=== PATIENT | female | born 1975 | race Caucasian/White ===

== ENCOUNTER 2017-03-11 08:43 | Observation (INO) | payer OTHER ==
[~2017-03-11] VITALS: Ht 152.4 cm; Wt 76.7 kg
[~2017-03-11 08:43] MED LIST: LEVO.15 PO; ZYRT10TA3 PO
[2017-03-11 08:56] VITALS: BP 167/93; PULSE 83; RESP 16; TEMP 98.2; O2SAT 99
--- NOTE | 2017-03-11 08:59 | PD ---
HPI Chief Complaint: Chest Pain Time Seen by Provider: 08:55 Travel History International Travel<30 days: No Contact w/Intl Traveler<30days: No Traveled to known affect area: No History of Present Illness HPI PATIENT HAS HAD CP SINCE LAST NIGHT FAIRLY STEADY ALL NIGHT THEN FINALLY LET UP , NOW HAD A SECOND EPISODE THAT STARTED ABOUT 40MIN AGO, DESCRIBED SUBSTERNAL , NON RAD, PRESSURE TO PINS AND NEEDLE SENSATION SUBSTERNALLY, CURRENTLY 5/10, DENIES N/V/FEVER/COUGH/ PFSH Past Medical History Hx Anticoagulant Therapy: No Anemia: Yes Arthritis: Yes (?RA) Cancer: No Cardiovascular Problems: Yes (CHOL) Diabetes: No Diminished Hearing: No Hepatitis: No Hiatal Hernia: No Hypertension: No Immune Disorder: Yes (?RA) Musculoskeletal: Yes (TENDONITIS RIGHT ELBOW) Reproductive: Yes ("ADENOMYOSIS") Respiratory: Yes (DYSPNEA) Immunizations Current: Yes Migraines: Yes Thyroid Disease: Yes (HYPO) : 0 Past Surgical History Hysterectomy: Yes (partial-UTERUS REMOVED/CERVIX AND OVARIES IN PLACE) Oral Surgery: Yes (T&A ; WISDOM TEETH) Pacemaker: No Tonsillectomy: Yes Other Surgery: Yes Social History Alcohol Use: No Tobacco Use: No Substance Use: No Allergies-Medications (Allergen,Severity, Reaction): Coded Allergies: Bactrim (Verified Allergy, Severe, 03/11/17) Ibuprofen (Unverified Allergy, Severe, PT STATES SHE "PASSES OUT", 03/11/17 ) Motrin (Verified Allergy, Severe, PASSES OUT, 03/11/17) Uncoded Allergies: BLOOD PRODUCTS (Adverse Reaction, Unknown, GNOSTICIST, 02/09/16) PT IS A GNOSTICIST NO BLOOD TRANSFUSIONS/BLOOD PRODUCTS Reported Meds & Prescriptions Reported Meds & Active Scripts Active Phenergan (Promethazine HCl) 25 Mg Tablet 25 Mg PO Q6H PRN Reported Zyrtec (Cetirizine HCl) 10 Mg Capsule Levothyroxine (Levothyroxine Sodium) 200 Mcg Tab 200 Mcg PO DAILY Omeprazole 20 Mg Tab 20 Mg PO DAILY Review of Systems Except as stated in HPI: all other systems reviewed are Neg Cardiovascular: Positive: Chest Pain or Discomfort Physical Exam Narrative GENERAL: SKIN: Warm and dry. HEAD: Atraumatic. Normocephalic. EYES: Pupils equal and round. No scleral icterus. No injection or drainage. ENT: No nasal bleeding or discharge. Mucous membranes pink and moist. NECK: Trachea midline. No JVD. CARDIOVASCULAR: Regular rate and rhythm. RESPIRATORY: No accessory muscle use. Clear to auscultation. Breath sounds equal bilaterally. GASTROINTESTINAL: Abdomen soft, non-tender, nondistended. Hepatic and splenic margins not palpable. MUSCULOSKELETAL: Extremities without clubbing, cyanosis, or edema. No obvious deformities. NEUROLOGICAL: Awake and alert. No obvious cranial nerve deficits. Motor grossly within normal limits. Five out of 5 muscle strength in the arms and legs. Normal speech. PSYCHIATRIC: Appropriate mood and affect; insight and judgment normal. Data Data Last Documented VS Orders Electrocardiogram (03/11/17 08:56) B-Type Natriuretic Peptide (03/11/17 08:56) Ckmb (Isoenzyme) Profile (03/11/17 08:56) Complete Blood Count With Diff (03/11/17 08:56) Comprehensive Metabolic Panel (03/11/17 08:56) D-Dimer (03/11/17 08:56) Magnesium (Mg) (03/11/17 08:56) Prothrombin Time / Inr (Pt) (03/11/17 08:56) Act Partial Throm Time (Ptt) (03/11/17 08:56) Troponin I (03/11/17 08:56) Lipase (03/11/17 08:56) Chest, Single Ap (03/11/17 08:56) Ecg Monitoring (03/11/17 08:56) Bilateral Bp Monitoring (03/11/17 08:56) Iv Access Insert/Monitor (03/11/17 08:56) Oximetry (03/11/17 08:56) Oxygen Administration (03/11/17 08:56) Aspirin Chew (Aspirin Chew) (03/11/17 09:00) Morphine Inj (Morphine Inj) (03/11/17 09:00) Nitroglycerin 2% Oint (Nitroglycerin 2% (03/11/17 09:00) Sodium Chloride 0.9% Flush (Ns Flush) (03/11/17 09:00) CKMB (03/11/17 09:00) CKMB% (03/11/17 09:00) Ondansetron Inj (Zofran Inj) (03/11/17 10:15) Admit Order (Ed Use Only) (03/11/17 11:00) Place In Observation (03/11/17 11:03) Activity Bed Rest With Brp (03/11/17 11:03) Vital Signs (Adult) Q4H (03/11/17 11:03) Cardiac Rhythm .As Directed (03/11/17 11:03) Notify Dr: Other .PRN (03/11/17 11:03) Notify Dr. Parameters (03/11/17 11:03) Resp Oxygen Nasal Cannula (03/11/17 ) Ckmb (Isoenzyme) Profile (03/11/17 12:00) Ckmb (Isoenzyme) Profile (03/11/17 15:00) Troponin I (03/11/17 12:00) Troponin I (03/11/17 15:00) Electrocardiogram (03/11/17 12:00) Electrocardiogram (03/11/17 15:00) ^ Obtain (03/11/17 11:03) Sodium Chloride 0.9% Flush (Ns Flush) (03/11/17 11:15) Sodium Chloride 0.9% Flush (Ns Flush) (03/11/17 21:00) Acetaminophen (Tylenol) (03/11/17 11:15) Acetamin-Hydrocod 325-7.5 Mg ([place] 7.5 (03/11/17 11:15) Morphine Inj (Morphine Inj) (03/11/17 11:15) Ondansetron Inj (Zofran Inj) (03/11/17 11:15) Nitroglycerin Sl (Nitrostat Sl) (03/11/17 11:15) Ironworker Wire Fence Erector / Telemetry SHALONDA.Q8H (03/11/17 11:03) Scd Bilateral/Knee High SHALONDA.BID (03/11/17 11:03) Ravindra Bilateral/Knee High SHALONDA.QSHIFT (03/11/17 11:03) CKMB (03/11/17 11:38) CKMB% (03/11/17 11:38) CKMB (03/11/17 15:15) CKMB% (03/11/17 15:15) MDM Medical Decision Making Medical Screen Exam Complete: Yes Emergency Medical Condition: Yes Medical Record Reviewed: Yes Interpretation(s) NSR 72, NL INTERVALS, NO STEMI PATTERN Differential Diagnosis LA V PE V NONSTEMI V PTX V PNA Narrative Course WILL ADVISE ADMISSION FOR R/O LA DUE TO RISK FACTORS OF HIGH LIPIDS AND CP. THUS FAR NO E/O PTX/PNA/NOR PE ON EVALUATION Diagnosis Primary Impression: CHEST PAIN R/O LA Admitting Information Admitting Physician Requests: Observation Scripts Promethazine (Phenergan)25 Mg [id number] Mg PO Q6H PRN (NAUSEA OR VOMITING) #10 TAB Ref 0 Prov:Geovani Ramon 03/11/17 Condition: Stable Alexi Newman MD Mar 11, 2017 08:59
[2017-03-11] MEDS ORDERED: SODIUM CHLORIDE 0.9% FLUSH 10 ML FLUSH IVF PRN (09:00)
[2017-03-11] MEDS ORDERED: ASPIRIN 81 MG CHEW TAB PO ONE (09:00)
[2017-03-11] MEDS ORDERED: OMEP20TA PO (09:00)
[2017-03-11] MEDS ORDERED: MORPHINE SULFATE 4 MG/ML INJ IV PUSH ONE (09:00)
[2017-03-11] MEDS ORDERED: NITROGLYCERIN 2% OINT 1 GM PACKET TOP ONE (09:00)
[2017-03-11] MEDS ORDERED: CETI10CA3 (09:00)
[2017-03-11] MEDS ORDERED: LEVO200T4 PO (09:00)
[2017-03-11 09:03] VITALS: RESP 16; O2SAT 99
[2017-03-11 09:08] LABS: AUTOMATED NEUTROPHIL # 2.5 TH/MM3 (1.8-7.7); BASOPHIL % 0.7 % (0.0-2.0); EOSINOPHIL # 0.2 TH/MM3 (0-0.4); EOSINOPHIL % 4.5 % (0.0-4.0); HEMATOCRIT 36.9 % (35.0-46.0); HEMO FLAGS DIFF FINAL; LYMPH % 17.9 % (9.0-44.0); LYMPHOCYTE # 0.7 TH/MM3 (1.0-4.8); MEAN CORPUSCULAR HEMOGLOBIN 30.2 PG (27.0-34.0); MEAN CORPUSCULAR HGB CONC 34.3 % (32.0-36.0); MONO % 9.3 % (0.0-8.0); NEUT % 67.6 % (16.0-70.0); PLATELET COUNT 181 TH/MM3 (150-450); RED CELL DISTRIBUTION WIDTH 13.1 % (11.6-17.2); WHITE BLOOD COUNT 3.8 TH/MM3 (4.0-11.0)
[2017-03-11 09:16] LABS: CHLORIDE 107 MEQ/L (98-107); POTASSIUM 3.6 MEQ/L (3.5-5.1); SODIUM (NA) 142 MEQ/L (136-145)
[2017-03-11 09:22] LABS: INTERNATIONAL NORMALIZED RATIO 0.9 RATIO
[2017-03-11 09:24] VITALS: BP_SYST 145; BP_SYST 147; BP_DIAS 85; BP_DIAS 92; PULSE 69; RESP 16; O2SAT 98
--- NOTE | 2017-03-11 09:24 | RADRPT ---
EXAM DATE/TIME: 03/11/2017 09:09 [facility] COMPARISON: CHEST SINGLE AP, February 09, 2016, 15:24. INDICATIONS : Chest pain, left upper arm pain MEDICAL HISTORY : None. SURGICAL HISTORY : None. ENCOUNTER: Initial ACUITY: 1 day PAIN SCORE: 8/10 LOCATION: Bilateral chest FINDINGS: A single view of the chest demonstrates the lungs to be symmetrically aerated without evidence of mas s, infiltrate or effusion. The cardiomediastinal contours are unremarkable. Osseous structures are intact. CONCLUSION: Normal examination for a patient of this age. No significant change has occurred. Bc Akers MD on March 11, 2017 at 9:21 Board Certified Radiologist. This report was verified electronically.
[2017-03-11 09:25] LABS: CREATINE KINASE 130 U/L (26-192)
[2017-03-11 09:54] LABS: ANION GAP 9 MEQ/L (5-15); BICARBONATE 25.7 MEQ/L (21.0-32.0)
[2017-03-11 09:55] LABS: MAGNESIUM 2.5 MG/DL (1.5-2.5)
[2017-03-11 09:57] LABS: GLOMERULAR FILTRATION RATE 101 ML/MIN (>89)
[2017-03-11 09:59] LABS: ALT (GPT) 21 U/L (10-53)
[2017-03-11 10:00] LABS: ALKALINE PHOSPHATASE 51 U/L (45-117)
[2017-03-11 10:03] LABS: CKMB LESS THAN 0.5 NG/ML (0.5-3.6)
[2017-03-11 10:05] LABS: BLOOD UREA NITROGEN 15 MG/DL (7-18)
[2017-03-11 10:06] LABS: AST (GOT) 13 U/L (15-37)
[2017-03-11 10:14] LABS: TOTAL BILIRUBIN ADULT 0.3 MG/DL (0.2-1.0)
[2017-03-11] MEDS ORDERED: ONDANSETRON HCL 4 MG/2 ML VIAL IV PUSH ONE (10:15)
--- NOTE | 2017-03-11 11:07 | HHI.HP ---
[facility] Osvaldo Sanchez Admission Diagnosis CHEST PAIN R/O [place] Diagnoses: (1) Chest pain Diagnosis: Principal (2) Hypothyroidism Diagnosis: Secondary (3) Hyperlipidemia Diagnosis: Secondary Chief Complaint: Chest pain Travel History International Travel<30 Days: No Contact w/Intl Traveler <30 Da: No Traveled to Known Affected Are: No History of Present Illness Written by Geovani Ramon, acting as scribe for Dr. Fontaine on 03/11/17 at 11: 27. 41-year-old female with known history of hypothyroidism, hyperlipidemia who presented to hospital because of chest discomfort. Patient indicates that last night approximately 8 PM she was sitting without any exertion and developed a left-sided chest discomfort that radiated to her left shoulder and arm. She indicates her last approximate 5 minutes resolved on its own. She indicates that she had this pain approximately 6 months ago but has not had any recurrence since then. Then this morning at 8 AM when she is getting ready for work she had the pain again. However the pain did not resolve so she came to emergency department for evaluation. She describes the pain as a generalized pain across her entire anterior chest with radiation to the neck, left shoulder, arm. Patient denies any associated nausea, vomiting, diaphoresis, shortness of breath, dyspnea, lightheadedness, dizziness. Patient was given aspirin, nitro paste emergency department and the pain finally did resolve after the use of morphine. Patient with risk factor to include hyperlipidemia which is untreated this time. Patient had workup done emergency department is recommended that patient be observed in the chest pain center. Review of Systems Constitutional: DENIES: Diaphoretic episodes, Fatigue, Fever, Weight gain, Weight loss, Chills, Dizziness, Change in appetite, Night Sweats Endocrine: DENIES: Abnorml menstrual pattern, Heat/cold intolerance, Polydipsia , Polyuria, Polyphagia Eyes: DENIES: Blurred vision, Diplopia, Eye inflammation, Eye pain, Vision loss , Double Vision Ears, nose, mouth, throat: DENIES: Hearing loss, Nasal discharge, Throat pain, Ear Pain, Running Nose, Sinus Pain Respiratory: DENIES: Apneas, Cough, Snoring, Wheezing, Hemoptysis, Sputum production, Shortness of breath Cardiovascular: COMPLAINS OF: Chest pain, DENIES: Palpitations, Syncope, Dyspnea on Exertion, Lower Extremity Edema, Orthopnea Gastrointestinal: DENIES: Abdominal pain, Black stools, Bloody stools, Constipation, Diarrhea, Nausea, Vomiting, Difficulty Swallowing, Anorexia Genitourinary: DENIES: Abnormal vaginal bleeding, Dysmenorrhea, Dyspareunia, Sexual dysfunction, Urinary frequency, Urinary incontinence, Urgency, Hematuria , Dysuria, Nocturia, Vaginal discharge Musculoskeletal: DENIES: Joint pain, Muscle aches, Stiffness, Joint Swelling, Back pain, Neck pain Integumentary: DENIES: Abnormal pigmentation, Pruritus, Rash, Nail changes, Breast masses, Breast skin changes, Nipple discharge Hematologic/lymphatic: DENIES: Bruising, Lymphadenopathy Immunologic/allergic: DENIES: Eczema, Urticaria Neurologic: DENIES: Abnormal gait, Headache, Localized weakness, Paresthesias, Seizures, Speech Problems, Tremor, Poor Balance Psychiatric: DENIES: Anxiety, Confusion, Mood changes, Depression Past Family Social History Past Medical History Hyperlipidemia Hypothyroidism Gastroesophageal reflux Past Surgical History Tonsillectomy Hysterectomy Reported Medications Reported Meds & Active Scripts Active Reported Zyrtec (Cetirizine HCl) 10 Mg Capsule Levothyroxine (Levothyroxine Sodium) 200 Mcg Tab 200 Mcg PO DAILY Omeprazole 20 Mg Tab 20 Mg PO DAILY Allergies: Coded Allergies: Bactrim (Verified Allergy, Severe, 03/11/17) Ibuprofen (Unverified Allergy, Severe, PT STATES SHE "PASSES OUT", 03/11/17 ) Motrin (Verified Allergy, Severe, PASSES OUT, 03/11/17) Uncoded Allergies: BLOOD PRODUCTS (Adverse Reaction, Unknown, VOODOO, 02/09/16) PT IS A VOODOO NO BLOOD TRANSFUSIONS/BLOOD PRODUCTS Family History Reviewed is significant for cancer and cancer, patient denies any family history of heart disease, diabetes, seizures Social History Patient denies any tobacco, alcohol or illicit drugs Physical Exam Vital Signs Vital Signs Date Time Temp Pulse Resp B/P Pulse Ox O2 Delivery O2 Flow Rate FiO2 03/11/17 09:24 69 16 145/85 98 Nasal Cannula 2 147/92 03/11/17 09:08 16 99 Nasal Cannula 2 03/11/17 09:03 99 Nasal Cannula 2 03/11/17 09:03 16 99 Nasal Cannula 2 03/11/17 08:56 98.2 83 16 167/93 99 Physical Exam GENERAL: Well-developed, well-nourished, in no acute distress. alert and orientated HEENT: Head is normocephalic without any lesions or masses noted. Facial features are symmetric. Eyes: Pupils equal round reactive to light. Extraocular muscles are intact. Conjunctivae were clear. Oropharyngeal: Pharynx without any erythema edema. Tongue is midline without deviation. Buccal mucosa is moist without any masses or lesions NECK: Supple without any masses. Trachea midline no deviation. No JVD, no bruits are appreciated CARDIAC: Regular rhythm, regular rate. S1/S2 are heard. No murmurs gallops or rubs. LUNGS: Clear to auscultation bilaterally. No wheeze, rhonchi or rales. No use of accessory muscles on inspiration or expiration. ABDOMEN: Soft, nontender. Nondistended. Bowel sounds heard in all 4 quadrants. No organomegaly or masses. Negative rebound, negative guarding EXTREMITIES: No edema, pulses are equal bilaterally. No cyanosis or clubbing NEUROLOGY: Mood and affect appear appropriate. Cranial nerves II through XII grossly intact. Muscle strength 5/5 in upper and lower extremities bilaterally. Deep tendon reflexes are 2+ in upper and lower extremities bilaterally. Laboratory Laboratory Tests Test 03/11/17 09:00 White Blood Count 3.8 Red Blood Count 4.20 Hemoglobin 12.7 Hematocrit 36.9 Mean Corpuscular Volume 88.0 Mean Corpuscular Hemoglobin 30.2 Mean Corpuscular Hemoglobin 34.3 Concent Red Cell Distribution Width 13.1 Platelet Count 181 Mean Platelet Volume 7.5 Neutrophils (%) (Auto) 67.6 Lymphocytes (%) (Auto) 17.9 Monocytes (%) (Auto) 9.3 Eosinophils (%) (Auto) 4.5 Basophils (%) (Auto) 0.7 Neutrophils # (Auto) 2.5 Lymphocytes # (Auto) 0.7 Monocytes # (Auto) 0.4 Eosinophils # (Auto) 0.2 Basophils # (Auto) 0.0 CBC Comment DIFF FINAL Differential Comment Prothrombin Time 10.0 Prothromb Time International 0.9 Ratio Activated Partial 32.0 Thromboplast Time D-Dimer Quantitative (PE/DVT) 0.30 Sodium Level 142 Potassium Level 3.6 Chloride Level 107 Carbon Dioxide Level 25.7 Anion Gap 9 Blood Urea Nitrogen 15 Creatinine 0.64 Estimat Glomerular Filtration 101 Rate Random Glucose 118 Calcium Level 8.6 Magnesium Level 2.5 Total Bilirubin 0.3 Aspartate Amino Transf 13 (AST/SGOT) Alanine Aminotransferase 21 (ALT/SGPT) Alkaline Phosphatase 51 Total Creatine Kinase 130 Creatine Kinase MB LESS THAN 0.5 Troponin I LESS THAN 0.02 B-Type Natriuretic Peptide 30 Total Protein 7.5 Albumin 3.9 Lipase 196 Result Diagram: 03/11/1789903/11/17899 Imaging Last Impressions Chest X-Ray 03/11/17 0856 Signed Impressions: Service Date/Time: Monday, March 11, 2017 09:09 - CONCLUSION: Normal examination for a patient of this age. No significant change has occurred. Bc Akers MD Assessment and Plan Problem List: (1) Chest pain ICD Code: R07.9 Status: Acute (2) Hyperlipidemia ICD Code: E78.5 Status: Acute (3) Hypothyroidism ICD Code: E03.9 Status: Acute Assessment and Plan 41-year-old female with Chest pain, atypical Patient with very minimal risk factors to include hyperlipidemia We'll continue to rule patient out for acute coronary event with serial cardiac enzymes and serial EKGs. Patient ruled out for acute coronary event, will pursue nuclear stress test rule out any underlying ischemia Patient started on aspirin, nitroglycerin emergency department. Start oxygen, Newcomb/morphine for pain, nitroglycerin as needed Hypothyroidism Continue home medications TSH 45.4 Counseled the patient on her thyroid medication and TSH testing. She admits now that she had been without her medication for at least one month. She states that she just got a refill and started taking it recently. Counseled patient further on needed take her medication, follow-up in outpatient setting. Get outpatient laboratory studies to monitor her thyroid medication DVT prevention Sequential compression devices This note was transcribed by francesco Ramon. I, Dr. Everett Fontaine personally performed the history, physical exam, and medical decision making; and confirmed the accuracy of the information in the transcribed note. Authenticated by Dr. Everett Fontaine on 03/11/17 at 11:27. Discharge disposition Discharge home in stable condition if stress test is negative Activity: Ad [place]. Diet: Healthy heart diet Medications per medication reconciliation Follow-up with primary medical doctor in one week Code Status Full code Discussed Condition With Patient, ED physician Problem Qualifiers (1) Chest pain: Qualified Code: R07.9 - Chest pain, unspecified type (2) Hypothyroidism: Qualified Code: E03.9 - Hypothyroidism, unspecified type (3) Hyperlipidemia: Qualified Code: E78.5 - Hyperlipidemia, unspecified hyperlipidemia type Geovani Ramon Mar 11, 2017 11:07 Everett Fontaine MD Mar 11, 2017 11:14
[2017-03-11] MEDS ORDERED: ACETAMINOPHEN/HYDROcodone 325 MG/7.5 MG TAB PO PRN (11:15)
[2017-03-11] MEDS ORDERED: SODIUM CHLORIDE 0.9% FLUSH 10 ML FLUSH IV FLUSH PRN (11:15)
[2017-03-11] MEDS ORDERED: MORPHINE SULFATE 4 MG/ML INJ IV PRN (11:15)
[2017-03-11] MEDS ORDERED: NITROGLYCERIN 0.4 MG SL 25 TABS/BTL SL PRN (11:15)
[2017-03-11] MEDS ORDERED: ONDANSETRON HCL 4 MG/2 ML VIAL IV PRN (11:15)
[2017-03-11] MEDS ORDERED: ACETAMINOPHEN 500 MG CPLT PO PRN (11:15)
[2017-03-11 12:00] VITALS: BP_SYST 111; BP_SYST 119; BP_DIAS 73; BP_DIAS 89; PULSE 73; PULSE 97; RESP 18; RESP 20; TEMP 96.9; TEMP 98.6; O2SAT 96; O2SAT 98
[2017-03-11 12:07] LABS: CREATINE KINASE 111 U/L (26-192)
[2017-03-11 12:19] LABS: CKMB LESS THAN 0.5 NG/ML (0.5-3.6)
[2017-03-11 14:48] VITALS: O2SAT 98
[2017-03-11 15:45] LABS: CREATINE KINASE 105 U/L (26-192)
[2017-03-11 15:58] LABS: CKMB 0.7 NG/ML (0.5-3.6)
[2017-03-11 16:00] VITALS: BP 128/75; PULSE 81; RESP 18; TEMP 97; O2SAT 93
[2017-03-11] MEDS ORDERED: REGADENOSON INJ 0.4 MG/5 ML SYR IV ONE (16:08)
--- NOTE | 2017-03-11 17:24 | RADRPT ---
EXAM DATE/TIME: 03/11/2017 16:15 [facility] COMPARISON: No previous studies available for comparison. INDICATIONS : Left sided chest pain radiating to the left arm for one day. Angina. DOSE: 26.5 mCi Tc99m Myoview at stress. 8.7 mCi Tc99m Myoview at rest. 0.4 mg Lexiscan STRESS SYMPTOMS: Nausea and vomiting. EJECTION FRACTION: > 70% MEDICAL HISTORY : Gastroesophageal reflux disease. Hypothyroidism. SURGICAL HISTORY : Tonsillectomy. Hysterectomy. ENCOUNTER: Initial ACUITY: 1 day PAIN SCALE: 0/10 LOCATION: Left chest TECHNIQUE: The patient underwent pharmacologic stress with infusion of prescribed dose. Continuous ECG tracing was monitored during stress. Gated SPECT imaging was performed after stress and conventional SPECT i maging was performed at rest. The examination was performed on a SPECT/CT scanner, both attenuation and non-corrected datasets were reviewed. FINDINGS: The gated cine loop images demonstrate no focal wall motion abnormality. Left ventricular ejection f raction is calculated at greater than 70%. The cardiac SPECT stress and rest images demonstrate no fixed or reversible defects to suggest infarc t or ischemia. CONCLUSION: No evidence of infarct, ischemia or focal wall motion abnormality. Left ventricular ejection fractio n is calculated at greater than 70%. RISK CATEGORY: Low risk (Less than 1% annual mortality rate) Ray Jorge MD on March 11, 2017 at 17:18 Board Certified Radiologist. This report was verified electronically.
--- NOTE | 2017-03-11 17:29 | HHI.DCPOC ---
Discharge Care Plan Diagnosis: (1) Chest pain Goals to Promote Your Health * To prevent worsening of your condition and complications * To maintain your health at the optimal level Directions to Meet Your Goals Take your medications as prescribed Follow your dietary instruction Follow activity as directed Keep your appointments as scheduled Take your immunizations and boosters as scheduled If your symptoms worsen call your PCP, if no PCP go to Urgent Care Center or Emergency Room Smoking is Dangerous to Your Health. Avoid second hand smoke Call the 24-hour hour crisis hotline for domestic abuse at Geovani Ramon Mar 11, 2017 17:29
[2017-03-11] MEDS ORDERED: PROM25TA10 PO (17:33)
[2017-03-11] MEDS ORDERED: TRIMETHOBENZAMIDE INJ 200 MG/2 ML VIAL IM ONE (17:45)
--- NOTE | 2017-03-11 18:00 | TR ---
Date Performed: 03/11/2017 Time Performed: 16:34:38 DOCTOR: Anibal Long DRUG LIST: CLINICAL HISTORY: ANGINA REASON FOR TEST: Angina REASON FOR ENDING: OBSERVATION: CONCLUSION: Lexiscan stress test was performed under standard four minute protocol. Radionuclide was injected one minute prior to ending the test. The patient was asymptomatic. No electrocardiograp hic abnormalities were present to suggest ischemia. Recovery was quick and uneventful. Nuclear imagin g and interpretation are pending. COMMENTS:
[2017-03-11] MEDS ORDERED: SODIUM CHLORIDE 0.9% FLUSH 10 ML FLUSH IV FLUSH SCH (21:00)
[2017-03-12] MEDS ORDERED: LEVOTHYROXINE SODIUM 200 MCG TAB PO SCH (06:00)
[2017-03-12] MEDS ORDERED: PANTOPRAZOLE SOD 20 MG DELAYED RELEASE TAB PO SCH (09:00)
--- NOTE | 2017-03-12 12:04 | EKG ---
Date Performed: 03/11/2017 Time Performed: 15:08:44 PTAGE: 41 years EKG: Sinus rhythm Since previous tracing, no significant change noted NORMAL ECG PREVIOUS TRACING : 03/11/2017 11.44 DOCTOR: Jalen Osborne Interpretating Date/Time 03/12/2017 12:02:44
--- NOTE | 2017-03-12 12:05 | EKG ---
Date Performed: 03/11/2017 Time Performed: 08:49:59 PTAGE: 41 years EKG: Sinus rhythm Since previous tracing, no significant change noted NORMAL ECG PREVIOUS TRACING : 02/09/2016 13.53.54 DOCTOR: Jalen Osborne Interpretating Date/Time 03/12/2017 12:03:59
--- NOTE | 2017-03-12 12:05 | EKG ---
Date Performed: 03/11/2017 Time Performed: 11:44:00 PTAGE: 41 years EKG: Sinus rhythm Since previous tracing, no significant change noted NORMAL ECG PREVIOUS TRACING : 03/11/2017 08.49.59 DOCTOR: Jalen Osborne Interpretating Date/Time 03/12/2017 12:03:14
== END 2017-03-11 20:12 | disposition home or self-care (01) ==
LOC: PHED 08:43 → PHEDH 11:08 → PH3A 12:14 → UNDODISOB 20:12
PROVIDERS: ADMIT Hospitalist; ATTEND Hospitalist
DX: R07.89 Other chest pain (principal); E78.5 Hyperlipidemia, unspecified; E03.9 Hypothyroidism, unspecified; M79.622 Pain in left upper arm; K21.9 Gastro-esophageal reflux disease without esophagitis
CPT/HCPCS: 71010; 78452; 80053; 82550; 82552; 83690; 83735; 83880; 84443; 84484; 85025; 85379; 85610; 85730; 93005; 93017; 96374; 96375; 99285; A9502; G0378; J2270; J2405; J2785; J3250